=== PATIENT | male | born 1995 | race Caucasian/White ===

== ENCOUNTER 2019-12-06 17:31 | Emergency (ER) | payer BC ==
[2019-12-06 17:50] VITALS: BP 120/74
--- NOTE | 2019-12-06 18:32 | UC ---
Psychiatric Complaint HPI - HPI Summary HPI Summary: 24 yo male with anxiety x three days denies any stress at home or work feels shake and anxious no cp or sob see at [facility] 2 days ago started on atarax desires non sedating option no si/hi - History Of Current Complaint Chief Complaint: UCGeneralIllness Stated Complaint: ANXIETY Time Seen by Provider: 12/06/19 18:25 Hx Obtained From: Patient Onset/Duration: Sudden Onset, Lasting Days Timing: Constant Severity Initially: Moderate Severity Currently: Moderate Character: Fearful, Anxious Aggravating Factor(s): Nothing Alleviating Factor(s): Other - atarax helps him sleep Associated Signs And Symptoms: Sleep Disturbance - had a hard time sleeping 2 night ago Related History: Negative For: Prior Psychiatric Issues, Drug Abuse Counseling, Admissions Related To Substance Abuse - Allergies/Home Medications Allergies/Adverse Reactions: Allergies Allergy/AdvReac Type Severity Reaction Status Date / Time No Known Allergies Allergy Verified 12/06/19 17:46 Home Medications: Home Medications Ondansetron TAB* [Zofran 4 MG Tab*] 4 mg PO Q6H PRN 12/06/19 [History Confirmed 12/06/19] PMH/Surg Hx/FS Hx/Imm Hx Previously Healthy: Yes - Surgical History Surgical History: None - Family History Known Family History: Positive: Hypertension - Social History Alcohol Use: Rare Substance Use Type: Marijuana Substance Use Comment - Amount & Last Used: daily Smoking Status (MU): Light Every Day Tobacco Smoker Type: Cigarettes Cessation Counseling: Patient Advised to Stop Review of Systems All Other Systems Reviewed And Are Negative: Yes Constitutional: Positive: Negative, Fever Eyes: Positive: Negative ENT: Positive: Negative Respiratory: Positive: Negative Cardiovascular: Positive: Negative Gastrointestinal: Positive: Negative Genitourinary: Positive: Negative Motor: Positive: Negative Neurovascular: Positive: Negative Musculoskeletal: Positive: Negative Neurological/Mental Status: Positive: Negative Psychological: Positive: Anxious Physical Exam Triage Information Reviewed: Yes Appearance: Well-Appearing, No Pain Distress, Well-Nourished Vital Signs: Initial Vital Signs Temp 98.6 F 12/06/19 17:39 Pulse 80 12/06/19 17:39 Resp 16 12/06/19 17:39 BP 120/74 12/06/19 17:39 Pulse Ox 99 12/06/19 17:39 Vital Signs Reviewed: Yes Eyes: Positive: Conjunctiva Clear ENT: Positive: Hearing grossly normal, Uvula midline. Negative: Nasal congestion, Nasal drainage, Tonsillar swelling, Tonsillar exudate, Trismus, Muffled voice, Hoarse voice Dental Exam: Normal Neck: Positive: Supple, Nontender, No Lymphadenopathy, Other: - no thyromegaly Respiratory: Positive: Lungs clear, Normal breath sounds, No respiratory distress, No accessory muscle use Cardiovascular: Positive: RRR, No Murmur Musculoskeletal: Positive: Strength Intact, ROM Intact, No Edema Neurological Exam: Normal Psychological: Positive: Other: - normal mood and affect Skin Exam: Normal Psych Complaint Course/Dx - Differential Dx/Diagnosis Provider Diagnosis: Anxiety Discharge ED - Sign-Out/Discharge Documenting (check all that apply): Patient Departure All imaging exams completed and their final reports reviewed: No Studies - Discharge Plan Condition: Stable Disposition: HOME Prescriptions: busPIRone TAB* [Buspar TAB*] 7.5 mg PO BID #20 tab Patient Education Materials: Anxiety (ED) Referrals: No Primary Care Phys,NOPCP [Primary Care Provider] - Additional Instructions: I suggest you follow up with your PCP at [facility] next week decrease or stop caffeine decrease or stop smoking - Billing Disposition and Condition Condition: STABLE Disposition: Home
== END 2019-12-06 18:48 | disposition home or self-care (01) ==
LOC: UCCORT 17:31
DX: F41.9 Anxiety disorder, unspecified (principal); F17.210 Nicotine dependence, cigarettes, uncomplicated
CPT/HCPCS: 99212; G0463